=== PATIENT | female | born 1995 | race Caucasian/White ===

== ENCOUNTER 2025-01-06 17:54 | Emergency (ER) | payer MEDICAID, SELFPAY ==
[2025-01-06 18:14] VITALS: BP 131/92; PULSE 96; RESP 20; TEMP 37.3; O2SAT 98; BMI 40.4
--- NOTE | 2025-01-06 19:23 | PD.EDSKIN ---
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 Limitations: no limitations Related Data Home Medications ?Medication ?Instructions ?Recorded ?Confirmed adalimumab 40 mg/0.4 mL 80 mg subcut 2 X WEEKLY 05/18/24 05/18/24 subcutaneous pen kit (Humira(CF) Pen) semaglutide (weight loss) 1 mg/0.5 1 mg subcut QWEEK 05/18/24 05/18/24 mL subcutaneous pen injector (Wegovy) Previous Rx's ?Medication ?Instructions ?Recorded prednisone 50 mg tablet 50 mg PO QDAY 7 days #7 tabs 01/06/25 Allergies Allergy/AdvReac Type Severity Reaction Status Date / Time erythromycin base Allergy Severe hives Verified 01/06/25 17:58 Sulfa (Sulfonamide Allergy Severe Hives Verified 01/06/25 17:58 Antibiotics) Review of Systems Review of Systems Systems Reviewed: All systems reviewed, normal except as documented Constitutional Constitutional: Reports system reviewed and no additional complaints, except as documented, Denies fever(s) and Denies headache(s) ENT Ears, Nose, Mouth, and Throat: Denies disequilibrium and Denies headache(s) Cardiovascular Cardiovascular: Reports system reviewed and no additional complaints, except as documented, Denies chest pain and Denies dyspnea Respiratory Respiratory: Reports system reviewed and no additional complaints, except as documented, Denies cough and Denies dyspnea Gastrointestinal Gastrointestinal: Reports system reviewed and no additional complaints, except as documented, Denies abdominal pain, Denies nausea and Denies vomiting Musculoskeletal Musculoskeletal: Reports as per HPI and Reports arthralgias Neurologic Neurologic: Reports system reviewed and no additional complaints, except as documented, Denies confusion, Denies disequilibrium and Denies headache(s) Psychiatric Psychiatric: Denies confusion Past Medical History Past Medical History CARDIAC: Negative Cardiac Disorders or Congestive Heart Failure RESPIRATORY: Positive Chronic Obstructive Pulmonary Disease (COPD) and Asthma GASTROINTESTINAL: Positive Gastrointestinal Disorders and Gall Bladder Disease GENITOURINARY: Negative Renal Disease ENDOCRINE: Negative Diabetes Mellitus Type 1 or Diabetes Mellitus Type 2 HEMATOLOGIC: Negative Sickle Cell Disease Social History SMOKING STATUS: Never smoker SUBSTANCE USE: does not use ED Exam General Limitations: Present no limitations General appearance: Present alert and in no apparent distress Head Head exam: Present atraumatic Eye Eye exam: Present normal appearance, PERRL and EOMI ENT ENT exam: Present normal exam, normal oropharynx and mucous membranes moist Neck Neck exam: Present normal inspection, full ROM and trachea midline Chest Chest inspection: Present normal inspection and symmetric chest wall rise Respiratory Respiratory exam: Present normal lung sounds bilaterally Cardiovascular Cardiovascular exam: Present regular rate, normal rhythm and normal heart sounds Abdominal Exam Abdominal exam: Present soft and normal bowel sounds Extremities Exam Extremities exam: Present normal inspection and full ROM Back Exam Back exam: Present normal inspection and full ROM Neurological Exam Neurological exam: Present alert, oriented X3 and CN II-XII intact Psychiatric Psychiatric exam: Present normal affect and normal mood Skin Skin exam: Present warm, dry, intact and normal color Course Quality Measures none Orders Category Date Time Status Dexamethasone Inj [Decadron Inj] Med 01/06/25 18:55 Discontinued 10 mg PO X1 ONE Vital Signs Vital signs: Vital Signs Temperature 99.1 F 01/06/25 18:14 Pulse Rate 96 01/06/25 18:14 Respiratory Rate 20 01/06/25 18:14 Blood Pressure 131/92 H 01/06/25 18:14 Pulse Oximetry (%) 98 01/06/25 18:14 Oxygen Delivery Method Room Air 01/06/25 18:14 O2 at 98% on RA and WNLs Skin / Abscess / Foreign Body MDM Narrative MDM Narrative:: 29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 Physical exam reveals no obvious redness or swelling in joints. No rash on skin. Patient is afebrile, calm, and alert. Likely autoimmune flare due to med withdrawal. Meds and senior vice president & general counsel given. Patient data External records reviewed:: [facility] previous records Clinical information provided by:: patient Social determinants that could affect healthcare access:: none Patient has the following chronic illnesses:: autoimmune How is presenting disease/condition affected by chronic disease/condition?: caused by Evaluation data The following diagnostics were reviewed and interpreted by me:: other (specify) (none) Lab and/or radiology exams considered but not ordered:: not ordered Interpretation Summary: n/a Medications / Prescriptions Medications or Prescriptions considered but not ordered:: ordered Medication administrations:: Medication Administration History Discontinued Medications Dexamethasone Sodium Phosphate (Dexamethasone Sod Phos Inj 10 Mg/Ml Vial) 10 mg PO X1 ONE Stop: 01/06/25 18:56 above Consultations Consultation(s) initiated? (list below): No Diagnosis Skin/Abscess Differential Diagnosis: abscess of skin or subcutaneous tissue, viral exanthem, dermatophytosis, urticaria, herpes zoster, allergic reaction to drug, cellulitis, eczema, insect bites, impetigo, contact dermatitis and other (disorder of immune system) Most likely diagnosis given after review of the tests above:: disorder of immune system Admission Indicated Admission indicated?: not indicated Admission Request Was there a request for admission?: No Disposition Plan Disposition Plan: Discharge Discharge Attestation Discharge Attestation: The patient and all family members were given an opportunity to ask questions and understood the discharge instructions. Discharge instructions specifically effects, indications for sooner follow up or return to the emergency department, and the expected course of current diagnosis. Patient condition: Stable Discharge Plan Plan Patient Disposition: HOME (Self Care) Discharge Disposition comment: Stable Prescriptions/Referrals Prescriptions/Med Rec: New prednisone 50 mg tablet 50 mg PO QDAY 7 Days Qty: 7 0RF No Action Humira(CF) Pen 40 mg/0.4 mL pen injector kit 80 mg SUBCUT 2 X WEEKLY Patient Comments: inject 0.8 MILLILITERS subcutaneously every 2 weeks Wegovy 1 mg/0.5 mL pen injector 1 mg SUBCUT QWEEK Patient Comments: inject 0.5 MILLILITER subcutaneously every week Problem List Clinical Impression: Disorder of immune system Patient/Caregiver Discharge Instructions Additional Instructions: Please follow-up with PCP within 24-48 hours and return immediately if symptoms worsen. Need to get back on Humira. Print Language: Greenlandic Stand Alone Forms: Patient Portal Info Letter VALE/ADRIANA Supervising Physician VALE/ADRIANA Supervising Physician: Dr. Aponte
[2025-01-06] MEDS: DEXAMETHASONE SOD PHOS INJ 10 MG/ML VIAL PO (20:01)
== END 2025-01-06 20:01 | disposition home or self-care (01) ==
PROVIDERS: Emergency Provider Emergency Medicine
DX: D89.89 Other specified disorders involving the immune mechanism, not elsewhere classified (principal)
CPT/HCPCS: 99282; J1100